=== PATIENT | female | born 1950 | race Caucasian/White ===

== ENCOUNTER → 2018-06-09 | Outpatient (CLI) | payer MEDICARE | END | disposition home or self-care (01) | LOC: CFH 13:40 | PROVIDERS: ATTEND Family Medicine | DX: Z12.31 Encounter for screening mammogram for malignant neoplasm of breast (principal) | CPT/HCPCS: 77063; 77067 ==

== ENCOUNTER → 2019-06-14 | Outpatient (CLI) | payer MEDICARE | END | disposition home or self-care (01) | LOC: CFH 14:37 | PROVIDERS: ATTEND Nurse Practitioner | DX: M85.88 Other specified disorders of bone density and structure, other site (principal); M81.0 Age-related osteoporosis without current pathological fracture; N95.8 Other specified menopausal and perimenopausal disorders | CPT/HCPCS: 77080 ==

== ENCOUNTER → 2020-03-06 | Outpatient (CLI) | payer MEDICARE ==
[~2020-03-06] MED LIST: REGADENOSON 0.4 MG/5 ML SYRINGE ONE
== END | disposition home or self-care (01) ==
LOC: CFH 06:45
PROVIDERS: ATTEND Internal Medicine Cardiovascular Disease
DX: I08.8 Other rheumatic multiple valve diseases (principal); I48.91 Unspecified atrial fibrillation
CPT/HCPCS: 78452; 93017; 93306; A9502; J2785

== ENCOUNTER 2020-04-05 10:39 | Day surgery (SDC) | payer MEDICARE ==
[~2020-04-05] VITALS: Ht 167.6 cm; Wt 55.0 kg
[2020-04-05 11:40] VITALS: BP 108/72
[2020-04-05] MEDS ORDERED: RIVA20TA PO (11:51)
[2020-04-05] MEDS ORDERED: GARL1TAB2 PO (11:51)
[2020-04-05] MEDS ORDERED: LEVO100T PO (11:51)
[2020-04-05] MEDS ORDERED: VITA0.4T6 PO (11:51)
[2020-04-05] MEDS ORDERED: DRON400T PO (11:51)
[2020-04-05] MEDS ORDERED: CALC-649 PO (11:51)
[2020-04-05] MEDS ORDERED: CLIN60LO TP (11:51)
[2020-04-05] MEDS ORDERED: MULT1TAB57 PO (11:51)
[2020-04-05] MEDS ORDERED: ASCO100T5 PO (11:51)
[2020-04-05 12:09] LABS: ALANINE AMINOTRANSFERASE 51 U/L (12-78); ALBUMIN 3.8 g/dL (3.4-5.0); ANION GAP 3 mmol/L (5-15); CALCIUM 8.8 mg/dL (8.5-10.1); CHLORIDE 110 mmol/L (98-107)
[2020-04-05 12:11] LABS: ALKALINE PHOSPHATASE 55 U/L (45-117); BILIRUBIN,TOTAL 0.7 mg/dL (0.2-1.0); TOTAL PROTEIN 6.8 g/dL (6.4-8.2)
[2020-04-05] MEDS ORDERED: PROPOFOL 10 MG/ML, 20ML ONE (12:37)
== END 2020-04-05 13:30 | disposition home or self-care (01) ==
LOC: CACL 10:39
PROVIDERS: ATTEND Internal Medicine Cardiovascular Disease
DX: I48.91 Unspecified atrial fibrillation (principal); E03.9 Hypothyroidism, unspecified; E78.00 Pure hypercholesterolemia, unspecified; Z79.01 Long term (current) use of anticoagulants; Z79.890 Hormone replacement therapy; Z79.899 Other long term (current) drug therapy; Z91.018 Allergy to other foods
CPT/HCPCS: 36415; 80053; 92960; 93005; J2704

== ENCOUNTER → 2020-08-03 | Outpatient (CLI) | payer MEDICARE ==
[~2020-08-03] MED LIST changes: +ASCO100T5 PO; +CALC-649 PO; +CLIN60LO TP; +DRON400T6 PO; +GARL1TAB2 PO; +LEVO100T PO; +MULT1TAB58 PO; -REGADENOSON 0.4 MG/5 ML SYRINGE ONE; +RIVA20TA PO; +VITA0.4T6 PO
== END | disposition home or self-care (01) ==
LOC: RAD 14:21
PROVIDERS: ATTEND Family Medicine
DX: J98.11 Atelectasis (principal); I48.20 Chronic atrial fibrillation, unspecified; I07.1 Rheumatic tricuspid insufficiency; I45.2 Bifascicular block; I49.1 Atrial premature depolarization; Z98.890 Other specified postprocedural states
CPT/HCPCS: 71046; 93005

== ENCOUNTER 2020-09-27 14:46 | Emergency (ER) | payer MEDICARE ==
[~2020-09-27] VITALS: Ht 165.1 cm; Wt 54.0 kg
[2020-09-27 16:10] LABS: BASOPHILS % (AUTO) 1 % (0-1); EOSINOPHILS % (AUTO) 2 % (1-7); LYMPHOCYTES % (AUTO) 16 % (22-44); MEAN CORPUSCULAR HEMOGLOBIN 31.9 pg (27.0-34.8); MEAN PLATELET VOLUME 8.8 fL (7.4-10.4); MONOCYTES % (AUTO) 11 % (2-9); NEUTROPHILS % (AUTO) 70 % (42-75); PLATELET COUNT 229 x10^3/uL (130-400); RED BLOOD COUNT 4.27 x10^6/uL (3.82-5.3); RED CELL DISTRIBUTION WIDTH 12.7 % (9.6-15.2)
[2020-09-27 16:22] LABS: ALANINE AMINOTRANSFERASE 32 U/L (12-78); ALBUMIN 3.7 g/dL (3.4-5.0); ANION GAP 5 mmol/L (5-15); CALCIUM 8.9 mg/dL (8.5-10.1); CHLORIDE 100 mmol/L (98-107)
[2020-09-27 16:25] LABS: ALKALINE PHOSPHATASE 141 U/L (45-117); BILIRUBIN,TOTAL 0.5 mg/dL (0.2-1.0); TOTAL PROTEIN 7.6 g/dL (6.4-8.2)
[2020-09-27 17:11] LABS: MICROSCOPIC NOT IND
--- NOTE | 2020-09-27 18:21 | NUR ---
SPOKE WITH PT AND REGARDING RESULTS AND LENGTH OF WAIT IN LOBBY. ALL QUESTIONS ANSWERED.
[2020-09-27 18:31] VITALS: BP 120/76
--- NOTE | 2020-09-27 19:46 | NUR ---
PT WAITING FOR DISPO, RECHECK. NO NEEDS AT THIS TIME.
== END 2020-09-27 20:03 | disposition home or self-care (01) ==
LOC: ED 15:16
DX: S22.009A Unspecified fracture of unspecified thoracic vertebra, initial encounter for closed fracture (principal); E03.9 Hypothyroidism, unspecified; X58.XXXA Exposure to other specified factors, initial encounter; Y93.89 Activity, other specified; Y92.89 Other specified places as the place of occurrence of the external cause; Y99.8 Other external cause status
CPT/HCPCS: 36415; 80053; 81003; 83690; 85025; 99283